=== PATIENT | female | born 1985 | race Caucasian/White ===

== ENCOUNTER 2018-09-16 03:15 | Inpatient (IN) | payer OTHER ==
[2018-09-16] MEDS ORDERED: BRETHINE SUB-Q PRN (04:59)
[2018-09-16] MEDS ORDERED: AMPICILLIN/NS 2 GM/100 ML 2 GM/100 ML BAG IV ONE (04:59)
[2018-09-16] MEDS ORDERED: XYLOCAINE 2% INFILTRATI ONE (04:59)
[2018-09-16] MEDS ORDERED: SUBLIMAZE IV PRN (04:59)
[2018-09-16] MEDS ORDERED: PITOCin/NS 20 UNIT/1000ML DRIP 20 UNITS/1,000 ML BAG IV SCH (05:00)
[2018-09-16] MEDS ORDERED: PITOCin/NS 30 UNIT/500ML 30 UNITS/500 ML BAG IV SCH (05:00)
[2018-09-16 05:19] LABS: Hematocrit 38.1 % (30.3-42.9); Hemoglobin 13.3 gm/dl (10.1-14.3); Mean Corpuscular HGB Conc 35 % (30-34); Mean Corpuscular Volume 90 fl (79-97); Platelet Count 202 K/mm3 (140-440); Red Blood Count 4.22 M/mm3 (3.65-5.03)
--- NOTE | 2018-09-16 05:22 | History and Physical Report ---
History of Present Illness Date of examination: 09/16/18 Date of admission: 09/16/2018 Chief complaint: Leaking of water from vagina History of present illness: 33 year old presents to L&D with complaint of leaking of water from vagina since 1:00 AM today. Pt. reports active movement. Patient reports contractions. She denies vaginal bleeding. Patient received care at [facility] and she brings a copy of her record with her. LMP 12/12/17. EDC09/22/2018. significant for the following: partial placenta previa which resolved, overweight, excessive maternal weight gain during (39 lbs). labs are as follows: O+, antibody screen negative, rubella immune, RPR nonreactive, HIV negative, hepatitis B surface antigen negative, gonorrhea negative, chlamydia negative, quad screen negative, glucose screen WNL, GBS negative, pap smear negative. Past History Past Medical History: other (overweight) Past Surgical History: no surgical history [employer] History: denies: abnormal PAP smear, chlamydia, gonorrhea, hepatitis B, hepatitis C, herpes, HIV, syphilis, trichomonas Family/Genetic History: heart disease, cancer Social history: lives with family, full code. denies: smoking, alcohol abuse, prescription drug abuse, IV drug use - Obstetrical History Expected Date of Delivery: 09/22/18 Actual Gestation: 39 Week(s) 1 Day(s) : 3 Para: 1 Hx # Term Pregnancies: 2 Number of Pregnancies: 0 Spontaneous Abortions: 1 Induced : 0 Number of Living Children: 1 Medications and Allergies Allergies Allergy/AdvReac Type Severity Reaction Status Date / Time No Known Allergies Allergy Verified 09/16/18 03:43 Home Medications Medication Instructions Recorded Confirmed Last Taken Type Vit-Fe Fumar-FA [ 1 tab PO DAILY 09/16/18 09/16/18 09/15/18 History Vitamin] Active Meds: Active Medications Ephedrine Sulfate (Ephedrine Sulfate) 10 mg IV Q2M PRN PRN Reason: Hypotension Fentanyl (Sublimaze) 100 mcg IV Q2H PRN PRN Reason: Labor Pain Oxytocin/Sodium Chloride (Pitocin/Ns 20 Unit/1000ml Drip) 20 units in 1,000 mls @ 125 mls/hr IV DIRECT VASU Oxytocin/Sodium Chloride (Pitocin/Ns 30 Unit/500ml) 30 units in 500 mls @ 0 mls/hr IV TITR VASU; Protocol Lactated Ringer's (Lactated Ringers) 1,000 mls @ 125 mls/hr IV DIRECT VASU Ampicillin Sodium (Polycillin/Ns 2 Gm/100 Ml) 2 gm in 100 mls @ 100 mls/hr IV ONCE ONE; Protocol Stop: 09/16/18 05:58 Lidocaine (Xylocaine 2%) 20 ml INFILTRATI ONCE ONE Stop: 09/16/18 05:00 Terbutaline Sulfate (Brethine) 0.25 mg SUB-Q ONCE PRN PRN Reason: Hyperstimulation/Hypertonicity Review of Systems All systems: negative (contractions) - Vital Signs Vital signs: Vital Signs Pulse BP 60 109/67 09/16/18 03:35 09/16/18 03:35 Temp Pulse Resp BP Pulse Ox 98.1 F 60 18 109/67 09/16/18 03:36 09/16/18 03:36 09/16/18 03:36 09/16/18 03:36 - Physical Exam Abdomen: Positive: normal appearance, soft. Negative: distention, tenderness, guarding, rigidity Genitourinary (Female): Positive: normal external genitalia, normal perenium. Negative: perineal/vulvar lesions Uterus: Positive: enlarged Anus/Rectum: Positive: normal perianal skin Extremities: Positive: normal. Negative: tenderness, edema - Obstetrical FHR: category 2 Uterine Contraction Monitor Mode: External Cervical Dilatation: 5 Cervical Effacement Percentage: 90 station: -2 Uterine Contraction Pattern: Irregular Uterine Contraction Intensity: Moderate Results All other labs normal. Assessment and Plan A: at 39 weeks, 1 day gestation. Spontaneous rupture of membranes. GBS negative. Active labor. P: Admit. Continuous EFM. Pitocin augmentation of labor. Discussed with patient Pitocin augmentation of labor. Patient consented to Pitocin augmentation of labor.
[2018-09-16 05:32] LABS: Red Cell Distribution Width 20.4 % (13.2-15.2)
[2018-09-16] MEDS: LACTATED RINGERS 1,000 ML IV SCH ×2 (05:41→09:50)
[2018-09-16 08:50] LABS: Alanine Aminotransferase 6 units/L (7-56); BUN/Creatinine Ratio 10; Blood Urea Nitrogen 5 mg/dL (7-17); Calcium 8.6 mg/dL (8.4-10.2); Hemolysis Index 12
[2018-09-16] MEDS ORDERED: ZOFRAN ONE (09:45)
--- NOTE | 2018-09-16 10:27 | Progress Note ---
Assessment and Plan - Patient Problems (1) 39 weeks gestation of Current Visit: Yes Status: Acute (2) Spontaneous rupture of amniotic membranes Current Visit: Yes Status: Acute (3) Active labor at term Current Visit: Yes Status: Acute Plan to address problem: Continue current management Pitocin @ 4 mu/min Encouraged position changes every 30-60 mins Anticipate vaginal delivery Subjective - Subjective Date of service: 09/16/18 Principal diagnosis: IUP @ 39 weeks, Active Labor Interval history: see H&P Patient reports: loss of fluid (SROM @ 0100; clear), vaginal bleeding, movement normal, contractions Objective - Vital Signs Vital Signs: Vital Signs - 12hr 09/16/18 09/16/18 09/16/18 03:35 03:36 05:41 Temperature 98.1 F Pulse Rate 60 60 61 Respiratory 18 Rate Blood Pressure 109/67 100/56 Blood Pressure 109/67 [Left] O2 Sat by Pulse Oximetry 09/16/18 09/16/18 09/16/18 05:56 06:07 06:08 Temperature 98.3 F Pulse Rate 72 58 L Respiratory 18 Rate Blood Pressure 139/98 Blood Pressure [Left] O2 Sat by Pulse 99 Oximetry 09/16/18 09/16/18 09/16/18 06:12 06:17 06:22 Temperature Pulse Rate 65 61 64 Respiratory Rate Blood Pressure Blood Pressure [Left] O2 Sat by Pulse 97 96 96 Oximetry 09/16/18 09/16/18 09/16/18 06:27 06:32 06:36 Temperature Pulse Rate 64 63 64 Respiratory Rate Blood Pressure Blood Pressure [Left] O2 Sat by Pulse 97 95 94 Oximetry 09/16/18 09/16/18 09/16/18 06:37 06:42 06:43 Temperature Pulse Rate 57 L 63 71 Respiratory Rate Blood Pressure Blood Pressure [Left] O2 Sat by Pulse 95 95 94 Oximetry 09/16/18 09/16/18 09/16/18 06:47 06:50 06:52 Temperature Pulse Rate 59 L 77 69 Respiratory Rate Blood Pressure Blood Pressure [Left] O2 Sat by Pulse 95 94 98 Oximetry 09/16/18 09/16/18 09/16/18 06:57 07:00 07:02 Temperature Pulse Rate 60 63 66 Respiratory Rate Blood Pressure Blood Pressure [Left] O2 Sat by Pulse 95 94 95 Oximetry 09/16/18 09/16/1809/16/19 07:07 07:12 07:17 Temperature Pulse Rate 69 66 61 Respiratory Rate Blood Pressure Blood Pressure [Left] O2 Sat by Pulse 97 97 96 Oximetry 09/16/18 09/16/18 09/16/18 07:22 07:23 07:27 Temperature 98.1 F Pulse Rate 62 57 L Respiratory 20 Rate Blood Pressure Blood Pressure [Left] O2 Sat by Pulse 97 96 96 Oximetry 09/16/18 09/16/18 09/16/18 07:32 07:37 07:42 Temperature Pulse Rate 61 61 73 Respiratory Rate Blood Pressure Blood Pressure [Left] O2 Sat by Pulse 97 96 97 Oximetry 09/16/18 09/16/18 09/16/18 07:47 07:52 07:57 Temperature Pulse Rate 63 66 65 Respiratory Rate Blood Pressure Blood Pressure [Left] O2 Sat by Pulse 96 96 96 Oximetry 09/16/18 09/16/18 09/16/18 08:02 08:07 08:12 Temperature Pulse Rate 69 56 L 65 Respiratory Rate Blood Pressure Blood Pressure [Left] O2 Sat by Pulse 98 97 98 Oximetry 09/16/18 09/16/18 09/16/18 08:17 08:22 08:27 Temperature Pulse Rate 57 L 74 56 L Respiratory Rate Blood Pressure Blood Pressure [Left] O2 Sat by Pulse 96 98 98 Oximetry 09/16/18 09/16/18 09/16/18 08:32 08:37 08:42 Temperature Pulse Rate 64 60 60 Respiratory Rate Blood Pressure Blood Pressure [Left] O2 Sat by Pulse 94 96 97 Oximetry 09/16/18 09/16/18 09/16/18 08:47 08:52 08:57 Temperature Pulse Rate 57 L 65 67 Respiratory Rate Blood Pressure Blood Pressure [Left] O2 Sat by Pulse 98 96 97 Oximetry 09/16/18 09/16/18 09/16/18 08:59 09:02 09:07 Temperature Pulse Rate 68 71 69 Respiratory Rate Blood Pressure 131/74 Blood Pressure [Left] O2 Sat by Pulse 98 99 Oximetry 09/16/18 09/16/18 09/16/18 09:12 09:15 09:17 Temperature Pulse Rate 58 L 63 60 Respiratory Rate Blood Pressure Blood Pressure [Left] O2 Sat by Pulse 97 93 97 Oximetry 09/16/18 09/16/18 09/16/18 09:22 09:27 09:32 Temperature Pulse Rate 66 59 L 62 Respiratory Rate Blood Pressure Blood Pressure [Left] O2 Sat by Pulse 97 97 96 Oximetry 09/16/18 09/16/18 09/16/18 09:37 09:42 09:47 Temperature Pulse Rate 69 75 62 Respiratory Rate Blood Pressure Blood Pressure [Left] O2 Sat by Pulse 98 98 96 Oximetry 09/16/18 09/16/18 09/16/18 09:52 09:55 09:57 Temperature Pulse Rate 69 63 65 Respiratory Rate Blood Pressure Blood Pressure [Left] O2 Sat by Pulse 98 94 94 Oximetry 09/16/18 09/16/18 09/16/18 10:00 10:01 10:02 Temperature Pulse Rate 65 59 L Respiratory 20 Rate Blood Pressure Blood Pressure [Left] O2 Sat by Pulse 94 96 Oximetry 09/16/18 09/16/18 09/16/18 10:05 10:07 10:12 Temperature Pulse Rate 63 71 66 Respiratory Rate Blood Pressure Blood Pressure [Left] O2 Sat by Pulse 94 94 94 Oximetry 09/16/18 09/16/18 09/16/18 10:14 10:17 10:21 Temperature 98.8 F Pulse Rate 73 60 Respiratory Rate Blood Pressure Blood Pressure [Left] O2 Sat by Pulse 94 94 Oximetry 09/16/18 09/16/18 10:22 10:26 Temperature Pulse Rate 67 54 L Respiratory Rate Blood Pressure Blood Pressure [Left] O2 Sat by Pulse 94 94 Oximetry - Exam Abdomen: Present: normal appearance, soft Vulva: both: normal FHR: auscultation normal, category 1 FHR comments: baseline 140, moderate variability, 15x15 accels, intermittent early decels Uterine Contraction Monitor Mode: External Cervical Dilatation: 6 Cervical Effacement Percentage: 90 station: -1 Uterine Contraction Frequency (min): 2-3 Uterine Contraction Pattern: Regular Extremities: normal - Labs Labs: Abnormal Labs 09/16/18 09/16/18 09/16/18 04:50 08:04 08:04 MCHC 35 H RDW 20.4 H Sodium 136 L Carbon Dioxide 20 L BUN 5 L Creatinine 0.5 L ALT 6 L Alkaline Phosphatase 144 H Lactate Dehydrogenase 203 H Total Protein 6.2 L Albumin 3.0 L Laboratory Results - last 24 hr 09/16/18 09/16/18 09/16/18 04:50 04:50 08:04 WBC 10.9 RBC 4.22 Hgb 13.3 Hct 38.1 MCV 90 MCH 32 MCHC 35 H RDW 20.4 H Plt Count 202 Sodium 136 L Potassium 4.1 Chloride 104.4 Carbon Dioxide 20 L Anion Gap 16 BUN 5 L Creatinine 0.5 L Estimated GFR > 60 BUN/Creatinine Ratio 10 Glucose 88 Uric Acid Calcium 8.6 Total Bilirubin 0.20 AST 15 ALT 6 L Alkaline Phosphatase 144 H Lactate Dehydrogenase Total Protein 6.2 L Albumin 3.0 L Albumin/Globulin Ratio 0.9 Blood Type O POSITIVE Antibody Screen Negative 09/16/18 09/16/18 08:04 08:04 WBC RBC Hgb Hct MCV MCH MCHC RDW Plt Count Sodium Potassium Chloride Carbon Dioxide Anion Gap BUN Creatinine Estimated GFR BUN/Creatinine Ratio Glucose Uric Acid 4.9 Calcium Total Bilirubin AST ALT Alkaline Phosphatase Lactate Dehydrogenase 203 H Total Protein Albumin Albumin/Globulin Ratio Blood Type Antibody Screen
[2018-09-16] MEDS ORDERED: ZOFRAN IV PRN ×2 (11:00→11:51)
[2018-09-16] MEDS ORDERED: CYTOTEC ONE (11:35)
--- NOTE | 2018-09-16 11:49 | Procedure Note ---
OB Delivery Note - Delivery Date of Delivery: 09/16/18 (11:20) Surgeon: SEBASTIÁN FLOR Estimated blood loss: 300cc - Vaginal Delivery presentation: vertex Delivery position: OA Intrapartum events: none Delivery induction: none Delivery augmentation: pitocin Delivery monitor: external FHT, external uterine Route of delivery: (11:20) Delivery placenta: spontaneous (11:29) Delivery cord: nuchal cord (x1; reduced after delivery of baby) Episiotomy: none Delivery laceration: 1st degree (vaginal (hemostatic; not repaired)) Anesthesia: intravenous Delivery comments: of a vigorous term 8 lbs 2 oz male on 09/16/18 @ 11:20. Baby placed [id number] on maternal abdomen. After 3 mins, umbilical cord double-clamped by RUBI Flor and cut by FOQuinten. Cord blood collected. Spont. delivery of placenta, Barbara-side presenting @ 11:29. Moderate lochia noted. Fundal massage and IV Pitocin bolus initiated. Fundus F/ML/U-1. Placenta intact; was discarded. 1st degree vag laceration noted and hemostatic so not repaired. Mom and baby in stable condition. - Infant A at 1 minute: 9 at 5 minutes: 9 Gender: Male (8 lbs 2 oz (3690 gm); 21 in)
[2018-09-16] MEDS ORDERED: LANSINOH TP PRN (11:51)
[2018-09-16] MEDS ORDERED: DULCOLAX PR PRN (11:51)
[2018-09-16] MEDS ORDERED: BENADRYL PO PRN (11:51)
[2018-09-16] MEDS ORDERED: TYLENOL PO PRN (11:51)
[2018-09-16] MEDS ORDERED: NORCO 5/325 PO PRN (11:51)
[2018-09-16] MEDS ORDERED: MILK OF MAGNESIA PO PRN (11:51)
[2018-09-16] MEDS ORDERED: PHENERGAN PO PRN (11:51)
[2018-09-16] MEDS ORDERED: PHENERGAN PR PRN (11:51)
[2018-09-16] MEDS ORDERED: TUCKS PAD TP PRN (11:51)
[2018-09-16] MEDS ORDERED: SODIUM CHLORIDE FLUSH SYRINGE 10 ML IV NR (12:00)
[2018-09-16] MEDS: IBUPROFEN PO SCH ×2 (14:24→23:44)
[2018-09-16 23:53] LABS: Hematocrit 31.1 % (30.3-42.9)
[2018-09-17] MEDS: IBUPROFEN PO SCH (06:03)
[2018-09-17] MEDS ORDERED: PRENATAL VITAMIN PO SCH (10:00)
[2018-09-17] MEDS ORDERED: FEOSOL PO SCH (10:00)
--- NOTE | 2018-09-17 10:33 | Progress Note ---
Assessment and Plan - Patient Problems (1) (normal spontaneous vaginal delivery) Current Visit: Yes Status: Acute Plan to address problem: Desires to go home today Will d/c home later today Subjective - Subjective Date of service: 09/17/18 Principal diagnosis: IUP @ 39 weeks, Active Labor Interval history: See admission H & P and OB delivery summary Patient reports: appetite normal, voiding normally, pain well controlled, flatus, ambulating normally, no bowel movement : doing well, other (Breast feeding) Objective - Vital Signs Latest vital signs: Vital Signs Temp Pulse Resp BP BP Pulse Ox 09/17/18 07:24 98.4 F 71 16 99/50 95 09/17/18 06:03 18 09/17/18 00:15 98.0 F 87 20 91/52 96 09/16/18 23:44 18 09/16/18 20:56 97.8 F 74 20 96/54 95 09/16/18 15:45 98.6 F 65 18 98/50 09/16/18 13:50 98 F 66 18 99/54 97 09/16/18 13:23 67 99/60 09/16/18 13:08 82 91/56 09/16/18 13:03 73 100/63 09/16/18 12:38 58 L 95/57 09/16/18 12:24 112 H 87/54 09/16/18 12:08 62 101/59 09/16/18 11:53 59 L 101/56 09/16/18 11:37 67 95 09/16/18 11:32 67 95 09/16/18 11:27 60 96 09/16/18 11:26 56 L 93 09/16/18 11:22 64 94 09/16/18 11:21 71 88 09/16/18 11:17 67 97 09/16/18 11:14 62 94 09/16/18 11:12 71 97 09/16/18 11:07 62 97 09/16/18 11:02 65 95 09/16/18 11:00 68 94 09/16/18 10:57 67 96 09/16/18 10:54 63 94 09/16/18 10:52 70 97 09/16/18 10:47 67 95 09/16/18 10:42 89 95 09/16/18 10:37 63 94 09/16/18 10:32 70 97 09/16/18 10:31 67 93 Intake and Output 09/16/18 09/17/18 09/17/18 23:59 07:59 15:59 Intake Total 320 240 Output Total 900 Balance -580 240 Intake: Oral 320 240 Output: Urine 900 Void 900 Other: Total, Intake Amount 320 240 Total, Output Amount 900 # Voids Void 1 - Exam Breasts: Present: deferred Cardiovascular: Present: Regular rate Lungs: Present: Normal air movement Abdomen: Present: soft, normal bowel sounds Uterus: Present: firm, fundal height below umbilicus (U-1) Extremities: Present: normal Deep Tendon Reflex Grade: Normal +2
--- NOTE | 2018-09-17 10:45 | Discharge Summary ---
Providers - Providers Date of Admission: 09/16/18 06:07 Date of discharge: 09/17/18 (1500) Attending physician: OLAYINKA BRIZUELA MD Primary care physician: OLAYINKA BRIZUELA MD Hospitalization Reason for admission: active labor, IUP at term Delivery: Episiotomy: none Laceration: 1st degree (healing as expected) Other procedures: none complications: none Discharge diagnosis: IUP at term delivered baby: male Hospital course: See admission H & P, OB delivery summary and PP progress notes Condition at discharge: Good Disposition: DC-01 TO HOME OR SELFCARE - Discharge Diagnoses (1) (normal spontaneous vaginal delivery) Status: Acute Plan - Provider Discharge Summary Activity: routine, no sex for 6 weeks, no heavy lifting 4 weeks, no strenuous exercise Diet: routine Instructions: routine Additional instructions: [] Smoking cessation referral if applicable(refer to patient education folder for contact #) [] Refer to [facility]'s [facility] Booklet Call your doctor immediately for: * Fever > 100.5 * Heavy vaginal bleeding ( >1 pad per hour) * Severe persistent headache * Shortness of breath * Reddened, hot, painful area to leg or breast * Drainage or odor from incision. - Follow up plan Follow up: OLAYINKA BRIZUELA MD [Primary Care Provider] - 6 Weeks
[2018-09-17 17:01] VITALS: BP 101/63
== END 2018-09-17 17:26 | disposition home or self-care (01) | DRG 807 ==
LOC: TRG 03:15 → LD 06:07 → OB 14:00
PROVIDERS: ADMIT Obstetrics & Gynecology; ATTEND Obstetrics & Gynecology
PROC: 10E0XZZ Delivery of Products of Conception, External Approach (ICD-10-PCS; principal; 2018-09-16)
DX: O69.81X0 Labor and delivery complicated by cord around neck, without compression, not applicable or unspecified (principal); Z37.0 Single live birth; O70.0 First degree perineal laceration during delivery; Z3A.39 39 weeks gestation of pregnancy; Z82.49 Family history of ischemic heart disease and other diseases of the circulatory system; Z80.9 Family history of malignant neoplasm, unspecified; Z79.899 Other long term (current) drug therapy
CPT/HCPCS: 36415; 80053; 83615; 84550; 85014; 85018; 85027; 86592; 86850; 86900; 86901; G0378; J2405; J2590; J3010; J7120